=== PATIENT | female | born 1970 | race Caucasian/White ===

== ENCOUNTER 2022-01-07 12:26 | Emergency (ER) | payer BC | END 2022-01-07 14:59 | disposition left against medical advice (07) | LOC: CSHERS 12:26 | DX: Z53.21 Procedure and treatment not carried out due to patient leaving prior to being seen by health care provider (principal) ==

== ENCOUNTER 2022-01-15 11:53 | Outpatient (CLI) | payer BC | END 2022-01-15 11:54 | disposition home or self-care (01) | LOC: CSHRAD 11:53 | PROVIDERS: ATTEND Internal Medicine | DX: M54.50 Low back pain, unspecified (principal) | CPT/HCPCS: 72100 ==

== ENCOUNTER 2022-03-16 10:06 | Outpatient (CLI) | payer BC | END 2022-03-16 10:07 | disposition home or self-care (01) | LOC: CSHMAMMO 10:06 | PROVIDERS: ATTEND Internal Medicine | DX: Z12.31 Encounter for screening mammogram for malignant neoplasm of breast (principal); Z98.82 Breast implant status | CPT/HCPCS: 77063; 77067 ==

== ENCOUNTER 2022-03-29 05:55 | Day surgery (SDC) | payer BC ==
[2022-03-24 15:36] VITALS: BMI 25.7
[2022-03-29] MEDS ORDERED: Lidocaine 1% MPF 2 ML VIAL ONE (06:20)
[2022-03-29] MEDS ORDERED: PROPOFOL 40 ML ONE (07:11)
[2022-03-29] MEDS ORDERED: Lidocaine 1% PF 5 ML VIAL ONE (07:12)
[2022-03-29] MEDS ORDERED: PROPOFOL 20 ML ONE ×2 (07:58→08:13)
== END 2022-03-29 09:12 | disposition home or self-care (01) ==
LOC: CSHSDC 05:55
PROVIDERS: ATTEND Internal Medicine Gastroenterology
PROC: 0DJD8ZZ Inspection of Lower Intestinal Tract, Via Natural or Artificial Opening Endoscopic (ICD-10-PCS; principal; 2022-03-29)
DX: Z12.11 Encounter for screening for malignant neoplasm of colon (principal); K57.30 Diverticulosis of large intestine without perforation or abscess without bleeding; Q43.8 Other specified congenital malformations of intestine; K64.9 Unspecified hemorrhoids; K83.09 Other cholangitis
CPT/HCPCS: J2704